=== PATIENT | female | born 1990 | race American Indian/Alaskan Native ===

== ENCOUNTER 2020-08-22 16:20 | Inpatient (IN) | payer MEDICAID ==
[2020-08-22 17:50] LABS: BLOOD UREA NITROGEN,BUN 12 mg/dL (7.0-18.0); CARBON DIOXIDE,CO2 19.6 mmol/L (21.0-32.0); CHLORIDE,CL 106 mmol/L (98-107); GLUCOSE RANDOM 138 mg/dL (74-106); POTASSIUM,K 3.3 mmol/L (3.5-5.1); SODIUM,NA 139 mmol/L (136-145)
--- NOTE | 2020-08-22 18:37 | PCM.POSTAN ---
POST ANESTHESIA ASSESSMENT - MENTAL STATUS Mental Status: Alert - RESPIRATORY Respiratory Status: Respiratory Rate WNL - CARDIOVASCULAR CV Status: Pulse Rate WNL - GASTROINTESTINAL GI Status: No Symptoms - POST OP HYDRATION Hydration Status: Adequate & Stable
[2020-08-22] MEDS ORDERED: Sodium Chloride 0.9% 0 ML ONE (18:58)
[2020-08-22] MEDS ORDERED: Citric Acid/Sodium Citrate Solution 30 ML Cup PO ONE (19:38)
[2020-08-22] MEDS ORDERED: ceFAZolin 2 GM in Premix Bag 1 BAG IV ONE (19:38)
[2020-08-22] MEDS ORDERED: Sodium Chloride 0.9% 10 ML SDV IV PRN ×2 (19:38→19:47)
[2020-08-22] MEDS ORDERED: Sodium Chloride 0.9% 2.5 ML Syringe FLUSH PRN ×2 (19:38→19:47)
[2020-08-22] MEDS ORDERED: Sodium Chloride 0.9% 10 ML Syringe FLUSH PRN ×2 (19:38→19:47)
[2020-08-22] MEDS ORDERED: Lactated Ringers 1,000 ML IV SCH (19:45)
[2020-08-22] MEDS ORDERED: Oxytocin/0.9 % Sodium Chloride 30 UNIT/500 ML BAG IV SCH (19:45)
--- NOTE | 2020-08-22 19:45 | US ---
INDICATION: Contractions. Leaking fluid. Date discrepancy. TECHNIQUE: Ultrasound OB pelvis. COMPARISON: None. FINDINGS: Sonographic imaging demonstrates a single living intrauterine gestation. Fetus demonstrates a regular cardiac rate of 147 beats per minute. Fetus has a breech orientation. The placenta lies in the fundus. Amniotic fluid volume is abnormal with an VILMA of only 2.4 cm (0 out of 2). breathing movements: 0 out of 2 Gross body movements: 2 out of 2 tone: 2 out of 2 measurements were obtained. The gestational age by measurements is 37 weeks and 3 days. Gestational age by LMP is 39 weeks and 6 days. Estimated weight is 2738 grams, which is at the 3rd percentile for LMP. IMPRESSION: 1. Single live intrauterine . 2. Biophysical profile score of 4 out of 8. 3. Measurements less than dates as noted above. 4. Oligohydramnios. Dictated by Amari Enrique MD @ 08/22/2020 7:42:18 PM Dictated by: Amari Enrique MD @ 08/22/2020 19:42:59 (Electronically Signed)
[2020-08-22] MEDS ORDERED: Morphine PF 10 MG/10 ML SDV ONE (19:46)
[2020-08-22] MEDS ORDERED: ceFAZolin 1 GM Vial ONE (19:46)
[2020-08-22] MEDS ORDERED: Magnesium Sulfate/Water 4 GM in Premix Bag 1 BAG IV ONE (19:47)
[2020-08-22] MEDS ORDERED: Calcium Gluconate 10% 1 GM/10 ML SDV IV PRN (19:47)
[2020-08-22] MEDS ORDERED: Ondansetron 4 MG/2 ML SDV ONE (19:52)
[2020-08-22] MEDS ORDERED: Oxytocin 10 Units/1 ML SDV ONE (19:52)
[2020-08-22] MEDS ORDERED: Phenylephrine 1% 10 MG/ML SDV ONE (19:52)
[2020-08-22] MEDS ORDERED: Ketorolac 30 MG/ML SDV ONE (19:52)
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
[2020-08-22] MEDS ORDERED: Nalbuphine 10 MG/1 ML Vial IVPUSH PRN (19:58)
[2020-08-22] MEDS ORDERED: Metoclopramide 10 MG/2 ML SDV ONE (20:09)
[2020-08-22] MEDS ORDERED: Magnesium Sulfate/Water 4 GM/100 ML BAG ONE (20:16)
[2020-08-22] MEDS ORDERED: Labetalol 100 MG/20 ML MDV IVPUSH PRN (20:17)
[2020-08-22] MEDS ORDERED: Magnesium Sulfate/Water 2 GM/50 ML BAG ONE (20:17)
[2020-08-22] MEDS: Magnesium Sulfate/Water 20 GM/500 ML BAG IV SCH (20:46)
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
[2020-08-22] MEDS ORDERED: Oxytocin 10 Units/1 ML SDV IM PRN (22:09)
[2020-08-22] MEDS ORDERED: Lanolin 100% Cream 7 GM Tube TOP PRN (22:09)
[2020-08-22] MEDS ORDERED: Acetaminophen/oxyCODONE 325-5 MG Tab PO PRN ×2 (22:09)
[2020-08-22] MEDS ORDERED: Bisacodyl 10 MG Supp RECTAL PRN (22:09)
[2020-08-22] MEDS ORDERED: diphenhydrAMINE 50 MG/ML SDV IVPUSH PRN (22:09)
[2020-08-22] MEDS ORDERED: Tranexamic Acid 1,000 MG in Sodium Chloride 0.9% 100 ML IV PRN (22:09)
[2020-08-22] MEDS ORDERED: Ondansetron 4 MG/2 ML SDV IVPUSH PRN (22:09)
--- NOTE | 2020-08-22 22:25 | PCM.OPNOTE ---
- General Post-Op/Procedure Note Date of Surgery/Procedure: 08/22/20 Operative Procedure(s): Primary LTCS Findings: Viable female APGARs 8, 9 weight 2410 gm. Intact placenta with 3V cord. Clear amniotic fluid Pre Op Diagnosis: 36/4 week IUP. Severe preeclampsia. Breech presentation Post-Op Diagnosis: Same Anesthesia Technique: Spinal Primary Surgeon: Kalyn Harmon Fluid Replacement, Intraop: 1,200 EBL in mLs: 600 Complications: none known Condition: Fair Free Text/Narrative:: Dictation [id number]
[2020-08-22] MEDS ORDERED: Measles, Mumps & Rubella Vaccine 0.5 ML SDV SUBCUT ONE (22:28)
--- NOTE | 2020-08-22 22:34 | PCM.POSTAN ---
POST ANESTHESIA ASSESSMENT - RESPIRATORY Respiratory Status: Respiratory Rate WNL - CARDIOVASCULAR CV Status: Pulse Rate WNL - GASTROINTESTINAL GI Status: No Symptoms - POST OP HYDRATION Hydration Status: Adequate & Stable
--- NOTE | 2020-08-22 23:54 | OR ---
SURGEON: Kalyn Harmon M.D. DATE OF PROCEDURE: 08/22/2020 PREOPERATIVE DIAGNOSES: 1. 36 and 4 week intrauterine . 2. Severe preeclampsia. 3. Breech presentation. 4. Limited care. POSTOPERATIVE DIAGNOSES: 1. 36 and 4 week intrauterine . 2. Severe preeclampsia. 3. Breech presentation. 4. Limited care. PROCEDURE: Primary low-transverse section. PRIMARY SURGEON: Kalyn Harmon M.D. ANESTHESIA: Spinal. ESTIMATED BLOOD LOSS: 600 mL. FLUIDS: 1200 mL of crystalloid in OR. FINDINGS: Viable female. score 8 at one minute and 9 at five minutes. Weight of 2410 g. Intact placenta, 3-vessel cord, clear amniotic fluid. DISPOSITION: The patient to PACU with magnesium recovery. to nursery. PROCEDURE DETAILS: Viktoria is a 30-year-old G5, P2-0-2-2 at approximately 36 and 4 weeks gestational age via LMP confirmed with ultrasound this evening on Labor and Delivery, presents with limited care. She has had 2 visits at the [facility] in [place]. We are not able to obtain any records as they are closed. The patient presents with contractions, however, with observation, she is found to be hypertensive with blood pressures ranging from the 130s to 160s over 70s to 100s. Ultrasound is performed and reveals the patient to be in breech presentation with an VILMA of only 2 cm. With labs, hemoglobin and platelets are in normal range with normal LFTs, but has more than 300 protein on her urine. Given these findings, it is felt best to proceed with admitting the patient, beginning magnesium prophylaxis for seizures, and proceeding with delivery in the form of given breech presentation, oligohydramnios. Discussed presentation and plan of care with patient and her significant other. They agreed to plan of care. Risks of procedure were discussed with her including infection; bleeding; possible trauma to the surrounding bowel, bladder, ureters; in case of excessive blood loss, need for blood product transfusion; in rare lifesaving circumstances need for hysterectomy; risk of anesthesia, risk for thromboembolic event. Proper consent was obtained. DESCRIPTION OF PROCEDURE: The patient was taken to the operating room where she underwent spinal anesthetic, was then placed in the dorsal supine position with leftward tilt. SCDs to the lower extremities. Saravia to gravity. Prepped and draped in usual sterile fashion. Received Ancef prophylactically. Time-out was performed. The patient's anesthesia was tested, found to be adequate. A Pfannenstiel skin incision was now created, carried down to the level of the rectus fascia which was incised in midline side and lateralized on either side sharply and bluntly. The superior aspect of the fascia was tented upward, dissected sharply and bluntly away from underlying muscle. In a similar fashion, this was performed on the inferior aspect of the fascia. Rectus muscle was in midline. Peritoneum was entered. Rectus muscles and peritoneum were now lateralized bluntly. Uterine position and position palpated. Self-retaining retractor was now gently placed. Uterovesical reflection was visualized. Bladder flap was created sharply and bluntly. Bladder was mobilized away from lower uterine segment. Low transverse hysterotomy was now performed. Uterine cavity was entered with blunt-ended scalpel. Hysterotomy was lateralized bluntly. A small amount of clear fluid was noted. Double footling breech is present. Feet were delivered followed by the buttocks, trunk, right upper extremity, left upper extremity, followed by flexing the head with fundal pressure being applied. The head was delivered. Infant's oropharynx and nares were bulb suctioned. The cord was clamped x2 and cut. was handed off to attending cable maker, nursery staff at bedside. Cord arterial, cord venous, cord blood sampling obtained. The placenta was now delivered. Uterine cavity was cleared of all clot and debris. Hysterotomy repaired using 0 Vicryl in continuous running locked fashion followed by re-imbricating layer. Posterior aspect of the uterus was inspected. No defects or hematomas were found to be forming. Region was well irrigated and suction dried. Uterus was returned to abdominal cavity. Hysterotomy once again inspected. The area of oozing in the midline was re-plicated with 2 figure-of- eight sutures. Hemostasis thereafter evident. Colonic gutters were cleared of all clot and debris, well irrigated and suction dried. Self-retaining retractor now gently removed. Bladder blade was placed. Hysterotomy was again inspected, found to be hemostatic. Rectus muscle and peritoneum were now reapproximated using 0 Vicryl with inverted mattress suture technique. Anterior aspect of the muscle, posterior aspect of the fascia closely inspected. Any areas of oozing were cauterized. The rectus fascia was now reapproximated using 0 Vicryl in continuous running fashion beginning laterally on either side and meeting in the midline. Subcutaneous tissues were irrigated and suction dried. Any areas of oozing were cauterized. The skin edges were reapproximated using 3-0 Vicryl on a Gregory needle in subcuticular fashion followed by half-inch Steri-Strips and Mastisol. Sponge, instrument, and needle counts were correct x2. Uterus remained firm. Hemostasis evident. The patient will go to PACU with magnesium recovery, infant to nursery. JOHN / APARNA /[id number]
[2020-08-23] MEDS: Ketorolac 30 MG/ML SDV IVPUSH SCH ×4 (02:07→19:46)
[2020-08-23] MEDS: Magnesium Sulfate/Water 20 GM/500 ML BAG IV SCH (06:18)
--- NOTE | 2020-08-23 07:10 | PCM48HPAN ---
Post Anesthesia Note - EVALUATION WITHIN 48HRS OF ANESTHETIC Vital Signs in Normal Range: Yes Patient Participated in Evaluation: Yes Respiratory Function Stable: Yes Airway Patent: Yes Cardiovascular Function Stable: Yes Hydration Status Stable: Yes Pain Control Satisfactory: Yes Nausea and Vomiting Control Satisfactory: Yes Mental Status Recovered: Yes Vital Signs: Last Vital Signs Temp 36.6 C 08/23/20 05:00 Pulse 88 08/23/20 06:00 Resp 16 08/23/20 06:00 BP 148/86 H 08/23/20 06:00 Pulse Ox 94 L 08/23/20 06:00
[2020-08-23] MEDS: Docusate Sodium 100 MG Cap PO SCH ×2 (09:05→20:56)
[2020-08-23] MEDS: Citalopram 20 MG Tab PO SCH (09:05)
--- NOTE | 2020-08-23 12:46 | PCM.PNPP ---
- General Info Date of Service: 08/23/20 Functional Status: Reports: Pain Controlled, Tolerating Diet - Review of Systems General: Reports: Fatigue. Denies: Fever, Weakness Pulmonary: Denies: Shortness of Breath Cardiovascular: Denies: Chest Pain, Palpitations, Lightheadedness Gastrointestinal: Denies: Abdominal Pain, Nausea, Vomiting Genitourinary: Reports: No Symptoms Musculoskeletal: Reports: No Symptoms Skin: Reports: No Symptoms Neurological: Reports: No Symptoms Psychiatric: Reports: No Symptoms - General Info Date of Service: 08/23/20 - Patient Data Vital Signs - Most Recent: Last Vital Signs Temp 36.9 C 08/23/20 12:00 Pulse 89 08/23/20 12:00 Resp 19 08/23/20 12:00 BP 121/75 08/23/20 12:00 Pulse Ox 96 08/23/20 12:00 Weight - Most Recent: 77.111 kg I&O - Last 24 Hours: Intake & Output 08/22/20 08/23/20 08/23/20 22:59 06:59 14:59 Intake Total 1200 838 250 Output Total 200 588 260 Balance 1000 250 -10 Lab Results - Last 24 Hours: Laboratory Results - last 24 hr 08/22/20 08/22/20 08/22/20 Range/Units 17:08 17:08 17:45 WBC 7.49 (4.0-11.0) K/uL RBC 4.10 L (4.30-5.90) M/uL Hgb 11.0 L (12.0-16.0) g/dL Hct 33.4 L (36.0-46.0) % MCV 81.5 (80.0-98.0) fL MCH 26.8 L (27.0-32.0) pg MCHC 32.9 (31.0-37.0) g/dL RDW Std Deviation 48.6 (28.0-62.0) fl RDW Coeff of Jesús 16 H (11.0-15.0) % Plt Count 258 (150-400) K/uL MPV 10.40 (7.40-12.00) fL Neut % (Auto) (48.0-80.0) % Lymph % (Auto) (16.0-40.0) % Cross % (Auto) (0.0-15.0) % Eos % (Auto) (0.0-7.0) % Baso % (Auto) (0.0-1.5) % Neut # (Auto) (1.4-5.7) K/uL Lymph # (Auto) (0.6-2.4) K/uL Cross # (Auto) (0.0-0.8) K/uL Eos # (Auto) (0.0-0.7) K/uL Baso # (Auto) (0.0-0.1) K/uL Nucleated RBC % 0.3 /100WBC Nucleated RBCs # 0 K/uL Cord ABG pH (7.18-7.38) Cord ABG Base Excess (-10--2) Cord VBG pH (7.25-7.45) Cord VBG Base Excess (-10--2) Sodium 139 (136-145) mmol/L Potassium 3.3 L (3.5-5.1) mmol/L Chloride 106 (98-107) mmol/L Carbon Dioxide 19.6 L (21.0-32.0) mmol/L BUN 12 (7.0-18.0) mg/dL Creatinine 0.8 (0.6-1.0) mg/dL Est Cr Clr Drug Dosing 80.59 mL/min Estimated GFR (MDRD) > 60.0 ml/min Glucose 138 H (74-106) mg/dL Uric Acid 4.9 (2.6-7.2) mg/dL Calcium 7.9 L (8.5-10.1) mg/dL Magnesium (1.8-2.4) mg/dL Total Bilirubin 0.3 (0.2-1.0) mg/dL AST 13 L (15-37) IU/L ALT 24 (14-63) IU/L Alkaline Phosphatase 205 H (46-116) U/L Total Protein 6.4 (6.4-8.2) g/dL Albumin 2.0 L (3.4-5.0) g/dL Globulin 4.4 H (2.6-4.0) g/dL Albumin/Globulin Ratio 0.5 L (0.9-1.6) Urine Color YELLOW Urine Appearance SLT CLOUDY Urine pH 6.5 (5.0-8.0) Ur Specific [place] >= 1.030 (1.001-1.035) Urine Protein >=300 H (NEGATIVE) mg/dL Urine Glucose (UA) NEGATIVE (NEGATIVE) mg/dL Urine Ketones NEGATIVE (NEGATIVE) mg/dL Urine Occult Blood TRACE-INTACT H (NEGATIVE) Urine Nitrite NEGATIVE (NEGATIVE) Urine Bilirubin NEGATIVE (NEGATIVE) Urine Urobilinogen 0.2 (<2.0) EU/dL Ur Leukocyte Esterase NEGATIVE (NEGATIVE) Membrane Rupture Urine Opiates Screen (NEGATIVE) Ur Oxycodone Screen (NEGATIVE) Urine Methadone Screen (NEGATIVE) Ur Barbiturates Screen (NEGATIVE) Ur Phencyclidine Scrn (NEGATIVE) Ur Amphetamine Screen (NEGATIVE) U Methamphetamines Scrn (NEGATIVE) U Benzodiazepines Scrn (NEGATIVE) U Cocaine Metab Screen (NEGATIVE) U Marijuana (THC) Screen (NEGATIVE) Hep Bs Antigen Index (<1.0) INDEX Hep Bs Antibody Index mIU/mL HIV 1&2 Ag/Ab, 4th Gen (<1.0) INDEX Rubella IgG Ab Index IU/mL SARS-CoV-2 RNA (ZAHRAA) (NEGATIVE) Blood Type Antibody Screen 08/22/20 08/22/20 08/22/20 Range/Units 17:45 18:53 19:10 WBC (4.0-11.0) K/uL RBC (4.30-5.90) M/uL Hgb (12.0-16.0) g/dL Hct (36.0-46.0) % MCV (80.0-98.0) fL MCH (27.0-32.0) pg MCHC (31.0-37.0) g/dL RDW Std Deviation (28.0-62.0) fl RDW Coeff of Jesús (11.0-15.0) % Plt Count (150-400) K/uL MPV (7.40-12.00) fL Neut % (Auto) (48.0-80.0) % Lymph % (Auto) (16.0-40.0) % Cross % (Auto) (0.0-15.0) % Eos % (Auto) (0.0-7.0) % Baso % (Auto) (0.0-1.5) % Neut # (Auto) (1.4-5.7) K/uL Lymph # (Auto) (0.6-2.4) K/uL Cross # (Auto) (0.0-0.8) K/uL Eos # (Auto) (0.0-0.7) K/uL Baso # (Auto) (0.0-0.1) K/uL Nucleated RBC % /100WBC Nucleated RBCs # K/uL Cord ABG pH (7.18-7.38) Cord ABG Base Excess (-10--2) Cord VBG pH (7.25-7.45) Cord VBG Base Excess (-10--2) Sodium (136-145) mmol/L Potassium (3.5-5.1) mmol/L Chloride (98-107) mmol/L Carbon Dioxide (21.0-32.0) mmol/L BUN (7.0-18.0) mg/dL Creatinine (0.6-1.0) mg/dL Est Cr Clr Drug Dosing mL/min Estimated GFR (MDRD) ml/min Glucose (74-106) mg/dL Uric Acid (2.6-7.2) mg/dL Calcium (8.5-10.1) mg/dL Magnesium (1.8-2.4) mg/dL Total Bilirubin (0.2-1.0) mg/dL AST (15-37) IU/L ALT (14-63) IU/L Alkaline Phosphatase (46-116) U/L Total Protein (6.4-8.2) g/dL Albumin (3.4-5.0) g/dL Globulin (2.6-4.0) g/dL Albumin/Globulin Ratio (0.9-1.6) Urine Color Urine Appearance Urine pH (5.0-8.0) Ur Specific [place] (1.001-1.035) Urine Protein (NEGATIVE) mg/dL Urine Glucose (UA) (NEGATIVE) mg/dL Urine Ketones (NEGATIVE) mg/dL Urine Occult Blood (NEGATIVE) Urine Nitrite (NEGATIVE) Urine Bilirubin (NEGATIVE) Urine Urobilinogen (<2.0) EU/dL Ur Leukocyte Esterase (NEGATIVE) Membrane Rupture NEGATIVE Urine Opiates Screen NEGATIVE (NEGATIVE) Ur Oxycodone Screen NEGATIVE (NEGATIVE) Urine Methadone Screen NEGATIVE (NEGATIVE) Ur Barbiturates Screen NEGATIVE (NEGATIVE) Ur Phencyclidine Scrn NEGATIVE (NEGATIVE) Ur Amphetamine Screen NEGATIVE (NEGATIVE) U Methamphetamines Scrn NEGATIVE (NEGATIVE) U Benzodiazepines Scrn NEGATIVE (NEGATIVE) U Cocaine Metab Screen NEGATIVE (NEGATIVE) U Marijuana (THC) Screen NEGATIVE (NEGATIVE) Hep Bs Antigen Index (<1.0) INDEX Hep Bs Antibody Index mIU/mL HIV 1&2 Ag/Ab, 4th Gen (<1.0) INDEX Rubella IgG Ab Index IU/mL SARS-CoV-2 RNA (ZAHRAA) NEGATIVE (NEGATIVE) Blood Type Antibody Screen 08/22/20 08/22/20 08/22/20 Range/Units 19:10 19:10 21:32 WBC (4.0-11.0) K/uL RBC (4.30-5.90) M/uL Hgb (12.0-16.0) g/dL Hct (36.0-46.0) % MCV (80.0-98.0) fL MCH (27.0-32.0) pg MCHC (31.0-37.0) g/dL RDW Std Deviation (28.0-62.0) fl RDW Coeff of Jesús (11.0-15.0) % Plt Count (150-400) K/uL MPV (7.40-12.00) fL Neut % (Auto) (48.0-80.0) % Lymph % (Auto) (16.0-40.0) % Cross % (Auto) (0.0-15.0) % Eos % (Auto) (0.0-7.0) % Baso % (Auto) (0.0-1.5) % Neut # (Auto) (1.4-5.7) K/uL Lymph # (Auto) (0.6-2.4) K/uL Cross # (Auto) (0.0-0.8) K/uL Eos # (Auto) (0.0-0.7) K/uL Baso # (Auto) (0.0-0.1) K/uL Nucleated RBC % /100WBC Nucleated RBCs # K/uL Cord ABG pH 7.194 (7.18-7.38) Cord ABG Base Excess -4 (-10--2) Cord VBG pH 7.284 (7.25-7.45) Cord VBG Base Excess -4 (-10--2) Sodium (136-145) mmol/L Potassium (3.5-5.1) mmol/L Chloride (98-107) mmol/L Carbon Dioxide (21.0-32.0) mmol/L BUN (7.0-18.0) mg/dL Creatinine (0.6-1.0) mg/dL Est Cr Clr Drug Dosing mL/min Estimated GFR (MDRD) ml/min Glucose (74-106) mg/dL Uric Acid (2.6-7.2) mg/dL Calcium (8.5-10.1) mg/dL Magnesium (1.8-2.4) mg/dL Total Bilirubin (0.2-1.0) mg/dL AST (15-37) IU/L ALT (14-63) IU/L Alkaline Phosphatase (46-116) U/L Total Protein (6.4-8.2) g/dL Albumin (3.4-5.0) g/dL Globulin (2.6-4.0) g/dL Albumin/Globulin Ratio (0.9-1.6) Urine Color Urine Appearance Urine pH (5.0-8.0) Ur Specific [place] (1.001-1.035) Urine Protein (NEGATIVE) mg/dL Urine Glucose (UA) (NEGATIVE) mg/dL Urine Ketones (NEGATIVE) mg/dL Urine Occult Blood (NEGATIVE) Urine Nitrite (NEGATIVE) Urine Bilirubin (NEGATIVE) Urine Urobilinogen (<2.0) EU/dL Ur Leukocyte Esterase (NEGATIVE) Membrane Rupture Urine Opiates Screen (NEGATIVE) Ur Oxycodone Screen (NEGATIVE) Urine Methadone Screen (NEGATIVE) Ur Barbiturates Screen (NEGATIVE) Ur Phencyclidine Scrn (NEGATIVE) Ur Amphetamine Screen (NEGATIVE) U Methamphetamines Scrn (NEGATIVE) U Benzodiazepines Scrn (NEGATIVE) U Cocaine Metab Screen (NEGATIVE) U Marijuana (THC) Screen (NEGATIVE) Hep Bs Antigen Index < 0.1 (<1.0) INDEX Hep Bs Antibody Index 31.4 mIU/mL HIV 1&2 Ag/Ab, 4th Gen < 0.1 (<1.0) INDEX Rubella IgG Ab Index 9.7 IU/mL SARS-CoV-2 RNA (ZAHRAA) (NEGATIVE) Blood Type O POSITIVE Antibody Screen NEGATIVE 08/23/20 08/23/20 08/23/20 Range/Units 02:55 05:20 08:49 WBC 10.02 (4.0-11.0) K/uL RBC 3.78 L (4.30-5.90) M/uL Hgb 10.0 L (12.0-16.0) g/dL Hct 30.4 L (36.0-46.0) % MCV 80.4 (80.0-98.0) fL MCH 26.5 L (27.0-32.0) pg MCHC 32.9 (31.0-37.0) g/dL RDW Std Deviation 46.0 (28.0-62.0) fl RDW Coeff of Jesús 16 H (11.0-15.0) % Plt Count 228 (150-400) K/uL MPV 9.90 (7.40-12.00) fL Neut % (Auto) 74.8 (48.0-80.0) % Lymph % (Auto) 17.2 (16.0-40.0) % Cross % (Auto) 7.2 (0.0-15.0) % Eos % (Auto) 0.6 (0.0-7.0) % Baso % (Auto) 0.2 (0.0-1.5) % Neut # (Auto) 7.5 H (1.4-5.7) K/uL Lymph # (Auto) 1.7 (0.6-2.4) K/uL Cross # (Auto) 0.7 (0.0-0.8) K/uL Eos # (Auto) 0.1 (0.0-0.7) K/uL Baso # (Auto) 0.0 (0.0-0.1) K/uL Nucleated RBC % /100WBC Nucleated RBCs # K/uL Cord ABG pH (7.18-7.38) Cord ABG Base Excess (-10--2) Cord VBG pH (7.25-7.45) Cord VBG Base Excess (-10--2) Sodium (136-145) mmol/L Potassium (3.5-5.1) mmol/L Chloride (98-107) mmol/L Carbon Dioxide (21.0-32.0) mmol/L BUN (7.0-18.0) mg/dL Creatinine (0.6-1.0) mg/dL Est Cr Clr Drug Dosing mL/min Estimated GFR (MDRD) ml/min Glucose (74-106) mg/dL Uric Acid (2.6-7.2) mg/dL Calcium (8.5-10.1) mg/dL Magnesium 5.0 H 6.0 H (1.8-2.4) mg/dL Total Bilirubin (0.2-1.0) mg/dL AST (15-37) IU/L ALT (14-63) IU/L Alkaline Phosphatase (46-116) U/L Total Protein (6.4-8.2) g/dL Albumin (3.4-5.0) g/dL Globulin (2.6-4.0) g/dL Albumin/Globulin Ratio (0.9-1.6) Urine Color Urine Appearance Urine pH (5.0-8.0) Ur Specific [place] (1.001-1.035) Urine Protein (NEGATIVE) mg/dL Urine Glucose (UA) (NEGATIVE) mg/dL Urine Ketones (NEGATIVE) mg/dL Urine Occult Blood (NEGATIVE) Urine Nitrite (NEGATIVE) Urine Bilirubin (NEGATIVE) Urine Urobilinogen (<2.0) EU/dL Ur Leukocyte Esterase (NEGATIVE) Membrane Rupture Urine Opiates Screen (NEGATIVE) Ur Oxycodone Screen (NEGATIVE) Urine Methadone Screen (NEGATIVE) Ur Barbiturates Screen (NEGATIVE) Ur Phencyclidine Scrn (NEGATIVE) Ur Amphetamine Screen (NEGATIVE) U Methamphetamines Scrn (NEGATIVE) U Benzodiazepines Scrn (NEGATIVE) U Cocaine Metab Screen (NEGATIVE) U Marijuana (THC) Screen (NEGATIVE) Hep Bs Antigen Index (<1.0) INDEX Hep Bs Antibody Index mIU/mL HIV 1&2 Ag/Ab, 4th Gen (<1.0) INDEX Rubella IgG Ab Index IU/mL SARS-CoV-2 RNA (ZAHRAA) (NEGATIVE) Blood Type Antibody Screen Med Orders - Current: Current Medications Bisacodyl (Bisacodyl 10 Mg Supp) 10 mg RECTAL ONETIME PRN PRN Reason: Constipation Calcium Gluconate (Calcium Gluconate 10% 1 Gm/10 Ml Sdv) 1 gm IV ASDIRECTED PRN PRN Reason: respiratory distress Citalopram Hydrobromide (Citalopram 20 Mg Tab) 20 mg PO DAILY LAMINE Last Admin: 08/23/20 09:05 Dose: 20 mg Documented by: Diphenhydramine HCl (Diphenhydramine 50 Mg/Ml Sdv) 25 mg IVPUSH Q6H PRN PRN Reason: Itching or Nausea Last Admin: 08/23/20 03:23 Dose: 25 mg Documented by: Docusate Sodium (Docusate Sodium 100 Mg Cap) 100 mg PO BID [facility] Last Admin: 08/23/20 09:05 Dose: 100 mg Documented by: Emollient Ointment (Lanolin 100% Cream 7 Gm Tube) 0 gm TOP ASDIRECTED PRN PRN Reason: Sore Nipples Last Admin: 08/23/20 06:19 Dose: 7 gm Documented by: Lactated Ringer's (Ringers, Lactated) 1,000 mls @ 500 mls/hr IV BOLUS [facility] Oxytocin/Sodium Chloride (Oxytocin 30 Unit/500 Ml-Ns) 30 unit in 500 mls @ 250 mls/hr IV TITRATE [facility] Magnesium Sulfate (Magnesium Sulfate In Water 20 Gm/500 Ml) 20 gm in 500 mls @ 50 mls/hr IV ASDIRECTED [facility] Last Admin: 08/23/20 06:18 Dose: 2 gm/hr, 50 mls/hr Documented by: Tranexamic Acid 1,000 mg/ (Sodium Chloride) 110 mls @ 660 mls/hr IV ONETIME PRN PRN Reason: Bleeding Ibuprofen (Ibuprofen 800 Mg Tab) 800 mg PO Q8H PRN PRN Reason: mild pain or fever Ketorolac Tromethamine (Ketorolac 30 Mg/Ml Sdv) 30 mg IVPUSH Q6H [facility] Stop: 08/23/20 20:01 Last Admin: 08/23/20 08:03 Dose: 30 mg Documented by: Labetalol HCl (Labetalol 100 Mg/20 Ml Mdv) 20 mg IVPUSH Q10M PRN; Protocol PRN Reason: Hypertension Nalbuphine HCl (Nalbuphine 10 Mg/1 Ml Vial) 5 mg IVPUSH Q3H PRN PRN Reason: Pruritis Stop: 08/23/20 19:59 Ondansetron HCl (Ondansetron 4 Mg/2 Ml Sdv) 4 mg IVPUSH Q4H PRN PRN Reason: Nausea/Vomiting Oxycodone/Acetaminophen (Acetaminophen/Oxycodone 325-5 Mg Tab) 1 tab PO Q4H PRN PRN Reason: Pain (moderate 4-6) Oxycodone/Acetaminophen (Acetaminophen/Oxycodone 325-5 Mg Tab) 2 tab PO Q4H PRN PRN Reason: Pain (moderate 4-6) Oxytocin (Oxytocin 10 Units/1 Ml Sdv) 10 unit IM ASDIRECTED PRN PRN Reason: Excessive Vaginal Bleeding Sodium Chloride (Sodium Chloride 0.9% 10 Ml Syringe) 10 ml FLUSH ASDIRECTED PRN PRN Reason: Keep Vein Open Sodium Chloride (Sodium Chloride 0.9% 2.5 Ml Syringe) 2.5 ml FLUSH ASDIRECTED PRN PRN Reason: Keep Vein Open Sodium Chloride (Sodium Chloride 0.9% 10 Ml Sdv) 10 ml IV ASDIRECTED PRN PRN Reason: IV Use Sodium Chloride (Sodium Chloride 0.9% 10 Ml Sdv) 10 ml IV ASDIRECTED PRN PRN Reason: IV Use Discontinued Medications Cefazolin Sodium (Cefazolin 1 Gm Vial) Confirm Administered Dose 2 gm .ROUTE .STK-MED ONE Stop: 08/22/20 19:47 Citric Acid/Sodium Citrate (Citric Acid/Sodium Citrate Solution 30 Ml Cup) 30 ml PO ONETIME ONE Stop: 08/22/20 19:39 Last Admin: 08/23/20 01:57 Dose: Not Given Documented by: Sodium Chloride (Normal Saline) Confirm Administered Dose 20 mls @ as directed .ROUTE .STK-MED ONE Stop: 08/22/20 18:59 Cefazolin Sodium/Dextrose 2 gm (/ Premix) 50 mls @ 100 mls/hr IV ONETIME ONE Stop: 08/22/20 20:07 Last Admin: 08/23/20 01:57 Dose: Not Given Documented by: Magnesium Sulfate 4 gm/ Premix 100 mls @ 300 mls/hr IV BOLUS ONE Stop: 08/22/20 20:06 Last Admin: 08/22/20 20:22 Dose: 300 mls/hr Documented by: Magnesium Sulfate (Magnesium Sulfate In Water 4 Gm/100 Ml) Confirm Administered Dose 4 gm in 100 mls @ as directed .ROUTE .STK-MED ONE Stop: 08/22/20 20:17 Magnesium Sulfate (Magnesium Sulfate In Water 2 Gm/50 Ml) Confirm Administered Dose 2 gm in 50 mls @ as directed .ROUTE .STK-MED ONE Stop: 08/22/20 20:18 Ketorolac Tromethamine (Ketorolac 30 Mg/Ml Sdv) Confirm Administered Dose 30 mg .ROUTE .STK-MED ONE Stop: 08/22/20 19:53 Measles/Mumps/Rubella Vaccine Live (Measles, Mumps & Rubella Vaccine 0.5 Ml Sdv) 0.5 ml SUBCUT .ONCE ONE Stop: 08/22/20 22:29 Metoclopramide HCl (Metoclopramide 10 Mg/2 Ml Sdv) Confirm Administered Dose 10 mg .ROUTE .STK-MED ONE Stop: 08/22/20 20:10 Morphine Sulfate (Morphine Pf 10 Mg/10 Ml Sdv) Confirm Administered Dose 10 mg .ROUTE .STK-MED ONE Stop: 08/22/20 19:47 Ondansetron HCl (Ondansetron 4 Mg/2 Ml Sdv) Confirm Administered Dose 4 mg .ROUTE .STK-MED ONE Stop: 08/22/20 19:53 Oxytocin (Oxytocin 10 Units/1 Ml Sdv) Confirm Administered Dose 20 unit .ROUTE .STK-MED ONE Stop: 08/22/20 19:53 Phenylephrine HCl (Phenylephrine 1% 10 Mg/Ml Sdv) Confirm Administered Dose 10 mg .ROUTE .STK-MED ONE Stop: 08/22/20 19:53 Sodium Chloride (Sodium Chloride 0.9% 10 Ml Syringe) 10 ml FLUSH ASDIRECTED PRN PRN Reason: Keep Vein Open Sodium Chloride (Sodium Chloride 0.9% 2.5 Ml Syringe) 2.5 ml FLUSH ASDIRECTED PRN PRN Reason: Keep Vein Open - Interaction Support Person: Significant Other - Recovery Exam Fundal Tone: Firm Fundal Level: 1 Fingerbreadths Below Umbilicus Fundal Placement: Midline Lochia Amount: Scant Lochia Color: Rubra/Red Perineum Description: Intact, Minimal Bruising/Swelling Episiotomy/Laceration: None Bladder Status: Indwelling Catheter in Place Urinary Elimination: Indwelling Catheter - Exam General: Alert, Oriented Lungs: Normal Respiratory Effort Cardiovascular: Regular Rate, Regular Rhythm GI/Abdominal Exam: Normal Bowel Sounds, Soft Extremities: Pedal Edema (trace). No: Shirley's Sign Skin: Warm, Dry, Intact Wound/Incisions: Dressing Dry and Intact Neurological: No New Focal Deficit Psy/Mental Status: Alert, Normal Affect, Normal Mood - Problem List & Annotations (1) Preeclampsia SNOMED Code(s): 050708643 Code(s): O14.90 - UNSPECIFIED PRE-ECLAMPSIA, UNSPECIFIED TRIMESTER Status: Acute Current Visit: Yes (2) Breech presentation SNOMED Code(s): 6932151 Code(s): O32.1XX0 - MATERNAL CARE FOR BREECH PRESENTATION, UNSP Status: Acute Current Visit: Yes - Problem List Review Problem List Initiated/Reviewed/Updated: Yes - My Orders Last 24 Hours: My Active Orders 08/22/20 Dinner Regular Diet [DIET] 08/22/20 16:55 Up ad Roxy [RC] ASDIRECTED Resuscitation Status Routine 08/22/20 18:29 BPP wo NST [US] Routine 08/22/20 19:10 RPR (SYPHILIS SERO) W/ RFLX [REF] Routine 08/22/20 19:38 Patient Status [ADT] Routine Vital Signs [RC] PER UNIT ROUTINE Sodium Chloride 0.9% [Normal Saline] 10 ml IV ASDIRECTED PRN Sodium Chloride 0.9% [Saline Flush] 10 ml FLUSH ASDIRECTED PRN Sodium Chloride 0.9% [Saline Flush] 2.5 ml FLUSH ASDIRECTED PRN Peripheral IV Insertion Adult [OM.PC] Routine Schedule Procedure [COMM] Per Unit Routine 08/22/20 19:45 Lactated Ringers [Ringers, Lactated] 1,000 ml IV BOLUS Oxytocin/0.9 % Sodium Chloride [Oxytocin 30 Unit/500 ML-NS] 30 unit in 500 ml IV TITRATE 08/22/20 19:46 Notify Provider Vital Signs [RC] PRN 08/22/20 19:47 Bedrest [RC] ASDIRECTED Equipment to Bedside [RC] PRN Height and Weight [RC] DAILY Intake and Output [RC] QSHIFT Notify Provider [RC] PRN Calcium Gluconate 1 gm IV ASDIRECTED PRN Sodium Chloride 0.9% [Normal Saline] 10 ml IV ASDIRECTED PRN Electronic Heart Tones Ext w TOCO [WOMSER] Per Unit Routine Peripheral IV Insertion Adult [OM.PC] Routine 08/22/20 19:49 Notify Provider Status Change [RC] ASDIRECTED 08/22/20 20:00 Magnesium Sulfate/Water [Magnesium Sulfate in Water 20 GM/500 ML] 20 gm in 500 ml IV ASDIRECTED Deep Tendon Reflexes [WOMSER] Q1H 08/22/20 20:10 OB Panel [OM.PC] Routine 08/22/20 20:15 CHLAMYDIA AND GONORRHEA BY TMA Routine GROUP B STREP BY PCR [MOLEC] Routine 08/22/20 20:17 Labetalol [Normodyne] 20 mg IVPUSH Q10M PRN 08/22/20 21:00 Deep Tendon Reflexes [WOMSER] Q1H 08/22/20 22:00 Deep Tendon Reflexes [WOMSER] Q1H 08/22/20 22:09 Patient Status [ADT] Routine Communication Order [RC] PER UNIT ROUTINE Communication Order [RC] PER UNIT ROUTINE Communication Order [RC] Per Unit Routine Notify Provider Intake and Out [RC] ASDIRECTED Notify Provider Vital Signs [RC] ASDIRECTED RT Incentive Spirometry [RC] Q2HWA Acetaminophen/oxyCODONE [Percocet 325-5 MG] 1 tab PO Q4H PRN Acetaminophen/oxyCODONE [Percocet 325-5 MG] 2 tab PO Q4H PRN Lanolin [Lansinoh HPA] See Dose Instructions TOP ASDIRECTED PRN Ondansetron [Zofran] 4 mg IVPUSH Q4H PRN Oxytocin [Pitocin] 10 unit IM ASDIRECTED PRN Tranexamic Acid [Cyklokapron] 1,000 mg Sodium Chloride 0.9% [Normal Saline] 100 ml IV ONETIME bisacodyL [Dulcolax] 10 mg RECTAL ONETIME PRN diphenhydrAMINE [Benadryl] 25 mg IVPUSH Q6H PRN Abdominal Binder [OM.PC] Routine Assess Lochia [WOMSER] Per Unit Routine Assess Uterine Involution [WOMSER] Per Unit Routine Breast Pump [WOMSER] Per Unit Routine Heat Therapy [OM.PC] Routine Ice Therapy [OM.PC] Routine Peripheral IV Discontinue [OM.PC] Routine Sequential Compression Device [OM.PC] Per Unit Routine 08/22/20 22:10 Antiembolic Devices [RC] PER UNIT ROUTINE 08/22/20 22:13 Oxygen Therapy [RC] PRN 08/22/20 22:28 Vaccines to be Administered [RC] PER UNIT ROUTINE 08/22/20 23:00 Deep Tendon Reflexes [WOMSER] Q1 08/23/20 00:00 Deep Tendon Reflexes [WOMSER] Q1 08/23/20 01:00 Deep Tendon Reflexes [WOMSER] Q1 08/23/20 02:00 Ketorolac [Toradol] 30 mg IVPUSH Q6H Deep Tendon Reflexes [WOMSER] Q1H 08/23/20 03:00 Deep Tendon Reflexes [WOMSER] Q1 08/23/20 04:00 Deep Tendon Reflexes [WOMSER] Q1 08/23/20 05:00 Deep Tendon Reflexes [WOMSER] Q1 08/23/20 06:00 Deep Tendon Reflexes [WOMSER] [facility] 08/23/20 07:00 Deep Tendon Reflexes [WOMSER] [facility] 08/23/20 08:00 Deep Tendon Reflexes [WOMSER] [facility] 08/23/20 09:00 Citalopram [Celexa] 20 mg PO DAILY Docusate Sodium [Colace] 100 mg PO BID Deep Tendon Reflexes [WOMSER] Q1 08/23/20 10:00 Deep Tendon Reflexes [WOMSER] [facility] 08/23/20 11:00 Deep Tendon Reflexes [WOMSER] Q1 08/23/20 12:00 Deep Tendon Reflexes [WOMSER] [facility] 08/23/20 13:00 Deep Tendon Reflexes [WOMSER] [facility] 08/23/20 14:00 Deep Tendon Reflexes [WOMSER] [facility] 08/23/20 14:45 MAGNESIUM [CHEM] Q6H 08/23/20 15:00 Deep Tendon Reflexes [WOMSER] [facility] 08/23/20 16:00 Deep Tendon Reflexes [WOMSER] [facility] 08/23/20 17:00 Deep Tendon Reflexes [WOMSER] Q1 08/23/20 18:00 Deep Tendon Reflexes [WOMSER] [facility] 08/23/20 19:00 Deep Tendon Reflexes [WOMSER] [facility] 08/23/20 20:45 MAGNESIUM [CHEM] Q6H 08/24/20 02:00 Ibuprofen [Motrin] 800 mg PO Q8H PRN - Assessment Assessment:: POD 1 s/p Primary LTCS for breech presentation Severe preeclampsia - Plan Plan:: Blood presssures are normalizing, but urine output remains marginal. Pain is well controlled. Continue magnesium prophylaxis and postoperative cares.
--- NOTE | 2020-08-23 19:27 | PCM.SN.2 ---
- Free Text/Narrative Note: Patient doing well overall. BPs in 130-140s/80-90s. Urine output increased. Denies headache or visual changes. Will discontinue magnesium at 9 pm and monitor. Continue postoperative cares.
[2020-08-24] MEDS: Ibuprofen 800 MG Tab PO PRN ×3 (03:47→23:00)
--- NOTE | 2020-08-24 08:24 | PCM.PNPP ---
- General Info Date of Service: 08/24/20 Functional Status: Reports: Pain Controlled, Tolerating Diet, Ambulating, Urinating - Review of Systems General: Reports: Fatigue. Denies: Fever, Weakness Pulmonary: Denies: Shortness of Breath Cardiovascular: Denies: Chest Pain, Palpitations, Lightheadedness Gastrointestinal: Denies: Abdominal Pain, Nausea, Vomiting Genitourinary: Denies: Flank Pain Musculoskeletal: Reports: No Symptoms Skin: Reports: No Symptoms Neurological: Reports: Headache Psychiatric: Reports: No Symptoms - General Info Date of Service: 08/24/20 - Patient Data Vital Signs - Most Recent: Last Vital Signs Temp 37.4 C 08/24/20 03:49 Pulse 93 08/24/20 03:49 Resp 16 08/24/20 03:49 BP 158/79 H 08/24/20 03:49 Pulse Ox 93 L 08/24/20 03:49 Weight - Most Recent: 77.111 kg I&O - Last 24 Hours: Intake & Output 08/23/20 08/24/20 08/24/20 22:59 06:59 14:59 Intake Total 180 Output Total 1105 200 Balance -925 -200 Lab Results - Last 24 Hours: Laboratory Results - last 24 hr 08/22/20 08/23/20 08/23/20 Range/Units 20:15 08:49 14:47 Magnesium 6.0 H 6.1 H (1.8-2.4) mg/dL Group B Strep (PCR) POSITIVE H (NEGATIVE) 08/23/20 Range/Units 20:45 Magnesium 5.5 H (1.8-2.4) mg/dL Group B Strep (PCR) (NEGATIVE) Med Orders - Current: Current Medications Bisacodyl (Bisacodyl 10 Mg Supp) 10 mg RECTAL ONETIME PRN PRN Reason: Constipation Calcium Gluconate (Calcium Gluconate 10% 1 Gm/10 Ml Sdv) 1 gm IV ASDIRECTED PRN PRN Reason: respiratory distress Citalopram Hydrobromide (Citalopram 20 Mg Tab) 20 mg PO DAILY [facility] Last Admin: 08/23/20 09:05 Dose: 20 mg Documented by: Diphenhydramine HCl (Diphenhydramine 50 Mg/Ml Sdv) 25 mg IVPUSH Q6H PRN PRN Reason: Itching or Nausea Last Admin: 08/23/20 03:23 Dose: 25 mg Documented by: Docusate Sodium (Docusate Sodium 100 Mg Cap) 100 mg PO BID [facility] Last Admin: 08/23/20 20:56 Dose: 100 mg Documented by: Emollient Ointment (Lanolin 100% Cream 7 Gm Tube) 0 gm TOP ASDIRECTED PRN PRN Reason: Sore Nipples Last Admin: 08/23/20 06:19 Dose: 7 gm Documented by: Lactated Ringer's (Ringers, Lactated) 1,000 mls @ 500 mls/hr IV BOLUS [facility] Oxytocin/Sodium Chloride (Oxytocin 30 Unit/500 Ml-Ns) 30 unit in 500 mls @ 250 mls/hr IV TITRATE [facility] Magnesium Sulfate (Magnesium Sulfate In Water 20 Gm/500 Ml) 20 gm in 500 mls @ 50 mls/hr IV ASDIRECTED [facility] Last Admin: 08/23/20 06:18 Dose: 2 gm/hr, 50 mls/hr Documented by: Tranexamic Acid 1,000 mg/ (Sodium Chloride) 110 mls @ 660 mls/hr IV ONETIME PRN PRN Reason: Bleeding Ibuprofen (Ibuprofen 800 Mg Tab) 800 mg PO Q8H PRN PRN Reason: mild pain or fever Last Admin: 08/24/20 03:47 Dose: 800 mg Documented by: Labetalol HCl (Labetalol 100 Mg/20 Ml Mdv) 20 mg IVPUSH Q10M PRN; Protocol PRN Reason: Hypertension Nifedipine (Nifedipine 30 Mg Tab.Er) 30 mg PO DAILY [facility] Ondansetron HCl (Ondansetron 4 Mg/2 Ml Sdv) 4 mg IVPUSH Q4H PRN PRN Reason: Nausea/Vomiting Oxycodone/Acetaminophen (Acetaminophen/Oxycodone 325-5 Mg Tab) 1 tab PO Q4H PRN PRN Reason: Pain (moderate 4-6) Oxycodone/Acetaminophen (Acetaminophen/Oxycodone 325-5 Mg Tab) 2 tab PO Q4H PRN PRN Reason: Pain (moderate 4-6) Oxytocin (Oxytocin 10 Units/1 Ml Sdv) 10 unit IM ASDIRECTED PRN PRN Reason: Excessive Vaginal Bleeding Sodium Chloride (Sodium Chloride 0.9% 10 Ml Syringe) 10 ml FLUSH ASDIRECTED PRN PRN Reason: Keep Vein Open Sodium Chloride (Sodium Chloride 0.9% 2.5 Ml Syringe) 2.5 ml FLUSH ASDIRECTED PRN PRN Reason: Keep Vein Open Sodium Chloride (Sodium Chloride 0.9% 10 Ml Sdv) 10 ml IV ASDIRECTED PRN PRN Reason: IV Use Sodium Chloride (Sodium Chloride 0.9% 10 Ml Sdv) 10 ml IV ASDIRECTED PRN PRN Reason: IV Use Discontinued Medications Cefazolin Sodium (Cefazolin 1 Gm Vial) Confirm Administered Dose 2 gm .ROUTE .STK-MED ONE Stop: 08/22/20 19:47 Citric Acid/Sodium Citrate (Citric Acid/Sodium Citrate Solution 30 Ml Cup) 30 ml PO ONETIME ONE Stop: 08/22/20 19:39 Last Admin: 08/23/20 01:57 Dose: Not Given Documented by: Sodium Chloride (Normal Saline) Confirm Administered Dose 20 mls @ as directed .ROUTE .STK-MED ONE Stop: 08/22/20 18:59 Cefazolin Sodium/Dextrose 2 gm (/ Premix) 50 mls @ 100 mls/hr IV ONETIME ONE Stop: 08/22/20 20:07 Last Admin: 08/23/20 01:57 Dose: Not Given Documented by: Magnesium Sulfate 4 gm/ Premix 100 mls @ 300 mls/hr IV BOLUS ONE Stop: 08/22/20 20:06 Last Admin: 08/22/20 20:22 Dose: 300 mls/hr Documented by: Magnesium Sulfate (Magnesium Sulfate In Water 4 Gm/100 Ml) Confirm Administered Dose 4 gm in 100 mls @ as directed .ROUTE .STK-MED ONE Stop: 08/22/20 20:17 Magnesium Sulfate (Magnesium Sulfate In Water 2 Gm/50 Ml) Confirm Administered Dose 2 gm in 50 mls @ as directed .ROUTE .STK-MED ONE Stop: 08/22/20 20:18 Ketorolac Tromethamine (Ketorolac 30 Mg/Ml Sdv) Confirm Administered Dose 30 mg .ROUTE .STK-MED ONE Stop: 08/22/20 19:53 Ketorolac Tromethamine (Ketorolac 30 Mg/Ml Sdv) 30 mg IVPUSH Q6H [facility] Stop: 08/23/20 20:01 Last Admin: 08/23/20 19:46 Dose: 30 mg Documented by: Measles/Mumps/Rubella Vaccine Live (Measles, Mumps & Rubella Vaccine 0.5 Ml Sdv) 0.5 ml SUBCUT .ONCE ONE Stop: 08/22/20 22:29 Metoclopramide HCl (Metoclopramide 10 Mg/2 Ml Sdv) Confirm Administered Dose 10 mg .ROUTE .STK-MED ONE Stop: 08/22/20 20:10 Morphine Sulfate (Morphine Pf 10 Mg/10 Ml Sdv) Confirm Administered Dose 10 mg .ROUTE .STK-MED ONE Stop: 08/22/20 19:47 Nalbuphine HCl (Nalbuphine 10 Mg/1 Ml Vial) 5 mg IVPUSH Q3H PRN PRN Reason: Pruritis Stop: 08/23/20 19:59 Ondansetron HCl (Ondansetron 4 Mg/2 Ml Sdv) Confirm Administered Dose 4 mg .ROUTE .STK-MED ONE Stop: 08/22/20 19:53 Oxytocin (Oxytocin 10 Units/1 Ml Sdv) Confirm Administered Dose 20 unit .ROUTE .STK-MED ONE Stop: 08/22/20 19:53 Phenylephrine HCl (Phenylephrine 1% 10 Mg/Ml Sdv) Confirm Administered Dose 10 mg .ROUTE .STK-MED ONE Stop: 08/22/20 19:53 Sodium Chloride (Sodium Chloride 0.9% 10 Ml Syringe) 10 ml FLUSH ASDIRECTED PRN PRN Reason: Keep Vein Open Sodium Chloride (Sodium Chloride 0.9% 2.5 Ml Syringe) 2.5 ml FLUSH ASDIRECTED PRN PRN Reason: Keep Vein Open - Infant Interaction Support Person: Significant Other - Recovery Exam Fundal Tone: Firm Fundal Level: 1 Fingerbreadths Below Umbilicus Fundal Placement: Midline Lochia Amount: Scant Lochia Color: Rubra/Red Perineum Description: Intact, Minimal Bruising/Swelling Episiotomy/Laceration: None Bladder Status: Indwelling Catheter in Place Urinary Elimination: Indwelling Catheter - Exam General: Alert, Oriented Lungs: Normal Respiratory Effort Cardiovascular: Regular Rate, Regular Rhythm GI/Abdominal Exam: Normal Bowel Sounds, Soft Extremities: Pedal Edema (trace). No: Shirley's Sign Skin: Warm, Dry, Intact Wound/Incisions: Healing Well, No Drainage. No: Erythema Neurological: No New Focal Deficit Psy/Mental Status: Alert, Normal Affect, Normal Mood - Problem List & Annotations (1) Preeclampsia SNOMED Code(s): 008195549 Code(s): O14.90 - UNSPECIFIED PRE-ECLAMPSIA, UNSPECIFIED TRIMESTER Status: Acute Current Visit: Yes (2) Breech presentation SNOMED Code(s): 5176798 Code(s): O32.1XX0 - MATERNAL CARE FOR BREECH PRESENTATION, UNSP Status: Acute Current Visit: Yes - Problem List Review Problem List Initiated/Reviewed/Updated: Yes - My Orders Last 24 Hours: My Active Orders 08/23/20 08:00 Deep Tendon Reflexes [WOMSER] Q1 08/23/20 09:00 Citalopram [Celexa] 20 mg PO DAILY Docusate Sodium [Colace] 100 mg PO BID Deep Tendon Reflexes [WOMSER] Q1 08/23/20 10:00 Deep Tendon Reflexes [[facility]] [facility] 08/23/20 11:00 Deep Tendon Reflexes [[facility]ER] [facility] 08/23/20 12:00 Deep Tendon Reflexes [[facility]SER] [facility] 08/23/20 13:00 Deep Tendon Reflexes [W[facility]SER] [facility] 08/23/20 14:00 Deep Tendon Reflexes [W[facility]SER] [facility] 08/23/20 15:00 Deep Tendon Reflexes [[facility]SER] [facility] 08/23/20 16:00 Deep Tendon Reflexes [[facility]SER] [facility] 08/23/20 17:00 Deep Tendon Reflexes [[facility]SER] [facility] 08/23/20 18:00 Deep Tendon Reflexes [[facility]SER] [facility] 08/23/20 19:00 Deep Tendon Reflexes [W[facility]SER] [facility] 08/24/20 02:00 Ibuprofen [Motrin] 800 mg PO Q8H PRN 08/24/20 08:10 Consult to Case Management/[employer] Operator [CONS] Routine 08/24/20 09:00 NIFEdipine [Procardia XL] 30 mg PO DAILY - Assessment Assessment:: POD 2 s/p Primary LTCS for breech presentation Severe preeclampsia - Plan Plan:: Magnesium discontinued last night. Blood pressures have become more elevated again and patient has a mild headache this morning. Will start procardia 30 ml XL and monitor. SS consult given limited care. Otherwise, continue postoperative cares.
[2020-08-24] MEDS: NIFEdipine 30 MG Tab.ER PO SCH (09:09)
[2020-08-24] MEDS: Citalopram 20 MG Tab PO SCH (09:10)
[2020-08-24] MEDS: Docusate Sodium 100 MG Cap PO SCH ×2 (09:10→23:00)
[2020-08-25] MEDS: Ibuprofen 800 MG Tab PO PRN ×2 (07:48→15:36)
[2020-08-25] MEDS: Citalopram 20 MG Tab PO SCH (09:17)
[2020-08-25] MEDS: Docusate Sodium 100 MG Cap PO SCH (09:17)
[2020-08-25] MEDS: NIFEdipine 30 MG Tab.ER PO SCH (09:17)
[2020-08-25] MEDS ORDERED: NIFEdipine 30 MG Tab.ER PO SCH (10:45)
--- NOTE | 2020-08-25 10:50 | PCM.PNPP ---
- General Info Date of Service: 08/25/20 Subjective Update: Patient is feeling quite well. Pain is controlled. Denies headaches or visual changes. She ambulates without headache or dizziness. Lochia is minimal. is going well overall. She would really like to go home later today. Functional Status: Reports: Pain Controlled, Tolerating Diet, Ambulating, Urinating - Review of Systems General: Denies: Fever, Weakness, Fatigue Pulmonary: Denies: Shortness of Breath Cardiovascular: Denies: Chest Pain, Palpitations, Lightheadedness Gastrointestinal: Reports: No Symptoms Genitourinary: Reports: No Symptoms Musculoskeletal: Reports: No Symptoms Skin: Reports: No Symptoms Neurological: Reports: No Symptoms Psychiatric: Reports: No Symptoms - General Info Date of Service: 08/25/20 - Patient Data Vital Signs - Most Recent: Last Vital Signs Temp 36.4 C 08/25/20 09:05 Pulse 81 08/25/20 09:05 Resp 16 08/25/20 09:05 BP 168/82 H 08/25/20 09:17 Pulse Ox 97 08/25/20 09:05 Weight - Most Recent: 77.111 kg Med Orders - Current: Current Medications Bisacodyl (Bisacodyl 10 Mg Supp) 10 mg RECTAL ONETIME PRN PRN Reason: Constipation Calcium Gluconate (Calcium Gluconate 10% 1 Gm/10 Ml Sdv) 1 gm IV ASDIRECTED PRN PRN Reason: respiratory distress Citalopram Hydrobromide (Citalopram 20 Mg Tab) 20 mg PO DAILY [facility] Last Admin: 08/25/20 09:17 Dose: 20 mg Documented by: Diphenhydramine HCl (Diphenhydramine 50 Mg/Ml Sdv) 25 mg IVPUSH Q6H PRN PRN Reason: Itching or Nausea Last Admin: 08/23/20 03:23 Dose: 25 mg Documented by: Docusate Sodium (Docusate Sodium 100 Mg Cap) 100 mg PO BID [facility] Last Admin: 08/25/20 09:17 Dose: 100 mg Documented by: Emollient Ointment (Lanolin 100% Cream 7 Gm Tube) 0 gm TOP ASDIRECTED PRN PRN Reason: Sore Nipples Last Admin: 08/23/20 06:19 Dose: 7 gm Documented by: Lactated Ringer's (Ringers, Lactated) 1,000 mls @ 500 mls/hr IV BOLUS [facility] Oxytocin/Sodium Chloride (Oxytocin 30 Unit/500 Ml-Ns) 30 unit in 500 mls @ 250 mls/hr IV TITRATE [facility] Magnesium Sulfate (Magnesium Sulfate In Water 20 Gm/500 Ml) 20 gm in 500 mls @ 50 mls/hr IV ASDIRECTED [facility] Last Admin: 08/23/20 06:18 Dose: 2 gm/hr, 50 mls/hr Documented by: Tranexamic Acid 1,000 mg/ (Sodium Chloride) 110 mls @ 660 mls/hr IV ONETIME PRN PRN Reason: Bleeding Ibuprofen (Ibuprofen 800 Mg Tab) 800 mg PO Q8H PRN PRN Reason: mild pain or fever Last Admin: 08/25/20 07:48 Dose: 800 mg Documented by: Labetalol HCl (Labetalol 100 Mg/20 Ml Mdv) 20 mg IVPUSH Q10M PRN; Protocol PRN Reason: Hypertension Nifedipine (Nifedipine 30 Mg Tab.Er) 60 mg PO DAILY [facility] Ondansetron HCl (Ondansetron 4 Mg/2 Ml Sdv) 4 mg IVPUSH Q4H PRN PRN Reason: Nausea/Vomiting Oxycodone/Acetaminophen (Acetaminophen/Oxycodone 325-5 Mg Tab) 1 tab PO Q4H PRN PRN Reason: Pain (moderate 4-6) Last Admin: 08/25/20 09:19 Dose: 1 tab Documented by: Oxycodone/Acetaminophen (Acetaminophen/Oxycodone 325-5 Mg Tab) 2 tab PO Q4H PRN PRN Reason: Pain (moderate 4-6) Oxytocin (Oxytocin 10 Units/1 Ml Sdv) 10 unit IM ASDIRECTED PRN PRN Reason: Excessive Vaginal Bleeding Sodium Chloride (Sodium Chloride 0.9% 10 Ml Syringe) 10 ml FLUSH ASDIRECTED PRN PRN Reason: Keep Vein Open Sodium Chloride (Sodium Chloride 0.9% 2.5 Ml Syringe) 2.5 ml FLUSH ASDIRECTED PRN PRN Reason: Keep Vein Open Sodium Chloride (Sodium Chloride 0.9% 10 Ml Sdv) 10 ml IV ASDIRECTED PRN PRN Reason: IV Use Sodium Chloride (Sodium Chloride 0.9% 10 Ml Sdv) 10 ml IV ASDIRECTED PRN PRN Reason: IV Use Discontinued Medications Cefazolin Sodium (Cefazolin 1 Gm Vial) Confirm Administered Dose 2 gm .ROUTE .STK-MED ONE Stop: 08/22/20 19:47 Citric Acid/Sodium Citrate (Citric Acid/Sodium Citrate Solution 30 Ml Cup) 30 ml PO ONETIME ONE Stop: 08/22/20 19:39 Last Admin: 08/23/20 01:57 Dose: Not Given Documented by: Sodium Chloride (Normal Saline) Confirm Administered Dose 20 mls @ as directed .ROUTE .STK-MED ONE Stop: 08/22/20 18:59 Cefazolin Sodium/Dextrose 2 gm (/ Premix) 50 mls @ 100 mls/hr IV ONETIME ONE Stop: 08/22/20 20:07 Last Admin: 08/23/20 01:57 Dose: Not Given Documented by: Magnesium Sulfate 4 gm/ Premix 100 mls @ 300 mls/hr IV BOLUS ONE Stop: 08/22/20 20:06 Last Admin: 08/22/20 20:22 Dose: 300 mls/hr Documented by: Magnesium Sulfate (Magnesium Sulfate In Water 4 Gm/100 Ml) Confirm Administered Dose 4 gm in 100 mls @ as directed .ROUTE .STK-MED ONE Stop: 08/22/20 20:17 Magnesium Sulfate (Magnesium Sulfate In Water 2 Gm/50 Ml) Confirm Administered Dose 2 gm in 50 mls @ as directed .ROUTE .STK-MED ONE Stop: 08/22/20 20:18 Ketorolac Tromethamine (Ketorolac 30 Mg/Ml Sdv) Confirm Administered Dose 30 mg .ROUTE .STK-MED ONE Stop: 08/22/20 19:53 Ketorolac Tromethamine (Ketorolac 30 Mg/Ml Sdv) 30 mg IVPUSH Q6H [facility] Stop: 08/23/20 20:01 Last Admin: 08/23/20 19:46 Dose: 30 mg Documented by: Measles/Mumps/Rubella Vaccine Live (Measles, Mumps & Rubella Vaccine 0.5 Ml Sdv) 0.5 ml SUBCUT .ONCE ONE Stop: 08/22/20 22:29 Metoclopramide HCl (Metoclopramide 10 Mg/2 Ml Sdv) Confirm Administered Dose 10 mg .ROUTE .STK-MED ONE Stop: 08/22/20 20:10 Morphine Sulfate (Morphine Pf 10 Mg/10 Ml Sdv) Confirm Administered Dose 10 mg .ROUTE .STK-MED ONE Stop: 08/22/20 19:47 Nalbuphine HCl (Nalbuphine 10 Mg/1 Ml Vial) 5 mg IVPUSH Q3H PRN PRN Reason: Pruritis Stop: 08/23/20 19:59 Nifedipine (Nifedipine 30 Mg Tab.Er) 30 mg PO DAILY [facility] Last Admin: 08/25/20 09:17 Dose: 30 mg Documented by: Ondansetron HCl (Ondansetron 4 Mg/2 Ml Sdv) Confirm Administered Dose 4 mg .ROUT E .STK-MED ONE Stop: 08/22/20 19:53 Oxytocin (Oxytocin 10 Units/1 Ml Sdv) Confirm Administered Dose 20 unit .ROUTE .STK-MED ONE Stop: 08/22/20 19:53 Phenylephrine HCl (Phenylephrine 1% 10 Mg/Ml Sdv) Confirm Administered Dose 10 mg .ROUTE .STK-MED ONE Stop: 08/22/20 19:53 Sodium Chloride (Sodium Chloride 0.9% 10 Ml Syringe) 10 ml FLUSH ASDIRECTED PRN PRN Reason: Keep Vein Open Sodium Chloride (Sodium Chloride 0.9% 2.5 Ml Syringe) 2.5 ml FLUSH ASDIRECTED PRN PRN Reason: Keep Vein Open - Infant Interaction Support Person: Significant Other - Recovery Exam Fundal Tone: Firm Fundal Level: 1 Fingerbreadths Below Umbilicus Fundal Placement: Midline Lochia Amount: Scant Lochia Color: Rubra/Red Perineum Description: Intact, Minimal Bruising/Swelling Episiotomy/Laceration: None Bladder Status: Voiding Urinary Elimination: Indwelling Catheter - Exam General: Alert, Oriented Lungs: Normal Respiratory Effort Cardiovascular: Regular Rate, Regular Rhythm GI/Abdominal Exam: Normal Bowel Sounds, Soft, Non-Tender Extremities: Pedal Edema (trace). No: Shirley's Sign Skin: Warm, Dry, Intact Neurological: No New Focal Deficit Psy/Mental Status: Alert, Normal Affect, Normal Mood - Problem List & Annotations (1) Preeclampsia SNOMED Code(s): 094274356 Code(s): O14.90 - UNSPECIFIED PRE-ECLAMPSIA, UNSPECIFIED TRIMESTER Status: Acute Current Visit: Yes (2) Breech presentation SNOMED Code(s): 6593647 Code(s): O32.1XX0 - MATERNAL CARE FOR BREECH PRESENTATION, UNSP Status: Acute Current Visit: Yes - Problem List Review Problem List Initiated/Reviewed/Updated: Yes - My Orders Last 24 Hours: My Active Orders 08/25/20 10:45 NIFEdipine [Procardia XL] 60 mg PO DAILY - Assessment Assessment:: POD 3 s/p Primary LTCS for breech presentation Severe preeclampsia Limited care - Plan Plan:: Blood pressures normal majority of the day yesterday; however, as got closer to dosing interval for procardia, became elevated again. Patient denies symptoms. Will increase procardia dose and monitor. If remains stable today with normal range blood pressure, will allow discharge to home with close interval follow up at our [place] clinic (patient prefers this to [place]) Discharge instructions reviewed. Follow up at [facility] next week for BP check/postop. Will specification writer prescriptions for procardia 60 mg XL qd, percocet 5/325 and citalopram 20 mg daily.
[2020-08-25] MEDS ORDERED: NIFEdipine 30 MG Tab.ER PO ONE (11:00)
[2020-08-25 13:03] LABS: C.TRACHOMATIS BY TMA Negative (Negative); N.GONORRHOEAE BY TMA Negative (Negative)
--- NOTE | 2020-08-25 18:54 | US ---
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 Site : 1990 Study: US-OB Pelvis -08/22/2020 7:19:06 PM Ordering Physician: Faustino Mccain Final Report: INDICATION: Contractions. Leaking fluid. Date discrepancy. TECHNIQUE: Ultrasound OB pelvis. COMPARISON: None. FINDINGS: Sonographic imaging demonstrates a single living intrauterine gestation. Fetus demonstrates a regular cardiac rate of 147 beats per minute. Fetus has a breech orientation. The placenta lies in the fundus. Amniotic fluid volume is abnormal with an VILMA of only 2.4 cm (0 out of 2). breathing movements: 0 out of 2 Gross body movements: 2 out of 2 tone: 2 out of 2 measurements were obtained. The gestational age by measurements is 37 weeks and 3 days. Gestational age by LMP is 39 weeks and 6 days. Estimated weight is 2738 grams, which is at the 3rd percentile for LMP. IMPRESSION: 1. Single live intrauterine . 2. Biophysical profile score of 4 out of 8. 3. Measurements less than dates as noted above. 4. Oligohydramnios. Dictated by Amari Enrique MD @ 08/22/2020 7:42:18 PM Dictated by: Amari Enrique MD @ 08/22/2020 19:42:59 Signed by: Amari Enrique MD @08/22/2020 7:42:59 PM (Electronic Signature) Report Signed by Proxy. [email or web address]
[2020-08-26] MEDS ORDERED: NIFEdipine 30 MG Tab.ER PO SCH (09:00)
== END 2020-08-25 18:20 | disposition home or self-care (01) | DRG 788 ==
LOC: MW.OBCHECK 16:20 → MW.OB 16:20 → MW.OBCHECK 19:38 → MW.OB 08-23 01:12
PROVIDERS: ADMIT Obstetrics & Gynecology; ATTEND Obstetrics & Gynecology
PROC: 10D00Z1 Extraction of Products of Conception, Low, Open Approach (ICD-10-PCS; principal; 2020-08-22)
DX: O14.14 Severe pre-eclampsia complicating childbirth (principal); O32.1XX0 Maternal care for breech presentation, not applicable or unspecified; Z3A.36 36 weeks gestation of pregnancy; Z37.0 Single live birth; Z20.822 Contact with and (suspected) exposure to COVID-19
CPT/HCPCS: 01961; 36415; 76805; 76805-26; 76819; 76819-26; 80053; 80305-QW; 81003; 82803; 83735; 84112; 84550; 85025; 85027; 86592; 86706; 86762; 86850; 86900; 86901; 87340; 87389; 87491; 87591; 87653; A9270-GY; J0690; J1200; J1885; J2270; J2370; J2405; J2590; J2765; J3475; U0002

== ENCOUNTER 2022-07-05 09:44 | Day surgery (SDC) | payer MEDICAID ==
[~2022-07-05 09:44] MED LIST: Lactated Ringers 1,000 ML IV SCH; Sodium Chloride 0.9% 10 ML Syringe FLUSH PRN; Sodium Chloride 0.9% 2.5 ML Syringe FLUSH PRN; Sodium Chloride 0.9% 20 ML SDV IV PRN
[2022-07-05] MEDS ORDERED: Propofol 200 MG/20 ML SDV ONE (11:28)
[2022-07-05] MEDS ORDERED: Lidocaine 2% 5 ML SDV ONE (11:28)
== END 2022-07-05 12:15 | disposition home or self-care (01) ==
LOC: MW.SDS 09:44
PROVIDERS: ATTEND Surgery
DX: K29.50 Unspecified chronic gastritis without bleeding (principal); K21.00 Gastro-esophageal reflux disease with esophagitis, without bleeding; F41.9 Anxiety disorder, unspecified; F32.A Depression, unspecified; F17.290 Nicotine dependence, other tobacco product, uncomplicated; Z79.899 Other long term (current) drug therapy; Z98.890 Other specified postprocedural states
CPT/HCPCS: 43239; 81025; J2704; J7120; J3490

== ENCOUNTER 2022-10-11 07:00 | Emergency (ER) | payer MEDICAID ==
[2022-10-11] MEDS ORDERED: Sodium Chloride 0.9% 1,000 ML IV ONE (08:20)
[2022-10-11] MEDS ORDERED: Ondansetron 4 MG/2 ML SDV IVPUSH ONE (08:20)
[2022-10-11] MEDS ORDERED: Morphine 4 MG/ML Syringe IVPUSH ONE ×2 (08:20→16:39)
[2022-10-11 08:39] LABS: A/G RATIO 0.7 (0.9-1.6); ALBUMIN 3.6 g/dL (3.4-5.0); BILIRUBIN TOTAL 1.3 mg/dL (0.2-1.0); CALCIUM 8.5 mg/dL (8.5-10.1); CARBON DIOXIDE,CO2 15.8 mmol/L (21.0-32.0); CREATININE 0.6 mg/dL (0.6-1.0); EST CRCL DRUG DOSING (CG) 105.48 mL/min; POTASSIUM,K 3.7 mmol/L (3.5-5.1); PROTEIN TOTAL,TP 8.5 g/dL (6.4-8.2)
[2022-10-11 08:57] LABS: BASOPHILS PERCENT AUTO 0.1 % (0.0-1.5); EOSINOPHILS PERCENT AUTO 0.1 % (0.0-7.0); HEMATOCRIT 40.3 % (36.0-46.0); HEMOGLOBIN 13.8 g/dL (12.0-16.0); LYMPHOCYTES ABSOLUTE AUTO 1.1 K/uL (0.6-2.4); LYMPHOCYTES PERCENT AUTO 16.4 % (16.0-40.0); MEAN CORPUSCULAR HEMOGLOBIN 29.6 pg (27.0-32.0); MEAN CORPUSCULAR HGB CONC 34.2 g/dL (31.0-37.0); MEAN CORPUSCULAR VOLUME 86.3 fL (80.0-98.0); MONOCYTES ABSOLUTE AUTO 0.2 K/uL (0.0-0.8); MONOCYTES PERCENT AUTO 3.4 % (0.0-15.0); NEUTROPHILS ABSOLUTE AUTO 5.5 K/uL (1.4-5.7); NRBC ABSOLUTE 0 K/uL; PLATELET COUNT,PLT 384 K/uL (150-400); RED BLOOD CELL COUNT 4.67 M/uL (4.30-5.90); WHITE BLOOD CELL COUNT,WBC 6.82 K/uL (4.0-11.0)
== END 2022-10-11 19:15 | disposition home or self-care (01) ==
LOC: MW.ED 07:00
DX: R11.2 Nausea with vomiting, unspecified (principal); R10.30 Lower abdominal pain, unspecified
CPT/HCPCS: 36415; 80053; 85025; 96361; 96374; 96375; 96376; 99284; J2270; J2405; J7030